=== PATIENT | female | born 1995 | race Caucasian/White ===

== ENCOUNTER 2017-08-31 14:18 | Emergency (ER) | payer OTHER ==
[~2017-08-31] VITALS: Ht 170.2 cm; Wt 70.0 kg
[2017-08-31] MEDS ORDERED: ONDANSETRON ODT 4 MG PO ONE (14:30)
[2017-08-31] MEDS ORDERED: FAMOTIDINE 20 MG/2 ML IVP ONE (14:30)
[2017-08-31] MEDS ORDERED: SODIUM CHLORIDE 0.9% 1,000ML IVBOLUS ONE (14:30)
[2017-08-31] MEDS ORDERED: ONDANSETRON ODT 4 MG ONE (14:54)
[2017-08-31] MEDS ORDERED: FAMOTIDINE 20 MG/2 ML ONE (15:17)
[2017-08-31 16:00] VITALS: BP 113/70
== END 2017-08-31 16:57 | disposition home or self-care (01) ==
LOC: ED 16:51
DX: E86.0 Dehydration (principal); R19.7 Diarrhea, unspecified; R11.2 Nausea with vomiting, unspecified
CPT/HCPCS: 96361; 96374; 99284; J7030; Q0162; S0028